=== PATIENT | female | born 1990 | race African-American/Black ===

== ENCOUNTER 2025-01-04 16:37 | Emergency (ER) | payer BC, SELFPAY ==
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
[2025-01-04 16:47] VITALS: BP 95/58; PULSE 75; RESP 16; TEMP 36.9; O2SAT 99
== END 2025-01-04 17:00 | disposition home or self-care (01) ==
PROVIDERS: Emergency Provider Nurse Practitioner; PCP Internal Medicine
DX: Z48.02 Encounter for removal of sutures (principal)
CPT/HCPCS: 99202; G0463

== ENCOUNTER 2025-06-06 11:01 | Emergency (ER) | payer BC, SELFPAY ==
--- NOTE | ~2025-06-06 | XR_ITS ---
EXAMINATION: XR foot RT min 3V DATE: 06/06/2025 11:24 INDICATION: Lateral right foot pain TECHNIQUE: Dorsoplantar, two oblique and lateral views of the right foot were obtained. COMPARISON: None. FINDINGS: Alignment is normal. No fracture. No periosteal reaction, cortical erosions or suspicious lytic or blastic bone lesions. Minimal to mild osteoarthritis at several tarsometatarsal and interphalangeal joints. Soft tissues are unremarkable. IMPRESSION: 1. 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 No acute osseous abnormality. Reviewed, dictated and finalized at location A. [employer] IMPRESSION: 1. Typical minimal to mild osteoarthritis at a several tarsal metatarsal and in terphalangeal joints. No acute osseous abnormality.
[2025-06-06 11:13] VITALS: BP 100/69; PULSE 88; RESP 16; TEMP 36.6; O2SAT 100
--- NOTE | 2025-06-06 11:24 | ED.LOWEXIN ---
HPI - Extremity Injury (Lower) General Chief Complaint: Extremity Injury, Lower Stated Complaint: FALL Time Seen by Provider: 06/06/25 11:44 Source: patient and RN notes reviewed Mode of arrival: ambulatory Limitations: no limitations History of Present Illness HPI Narrative: 34-year-old female presents concern for right foot pain. She reports she stepped in a hole last night at 10:00 p.m.. Reports that did her to the time it hurt when she workup. She reports pain worsens with flexion of the toes and ankles, weight-bearing. She has not taken any medication or done any other intervention for her foot. MD complaint: foot injury Related Data Home Medications ?Medication ?Instructions ?Recorded ?Confirmed ?Last Taken ?Type No Home Medications 01/04/25 06/06/25 Unknown History Allergies Allergy/AdvReac Type Severity Reaction Status Date / Time No Known Allergies Allergy Verified 06/06/25 11:40 Review of Systems Review of Systems: CONSTITUTIONAL: Denies malaise, chills, sweats, or fever. SKIN: Denies rash or itching, open skin, laceration, abrasion, redness, warmth, swelling. MUSCULOSKELETAL: Reports right foot pain NEUROLOGIC: Denies numbness, weakness All systems reviewed & are unremarkable except as noted in HPI and below PMFSH Comments At time of signature, agree with nursing past medical, surgical, social and family history. There is no relevant family history pertinent to the presenting complaint Exam Narrative: GENERAL: Well-appearing, well-nourished, and in no acute distress. HEAD: Normocephalic, atraumatic. EYES: PERRLA, conjunctivae clear NECK: Supple. CHEST: Speaks in full sentences. No respiratory distress. HEART: Regular rate and rhythm. Normal and equal peripheral pulses. EXTREMITIES: Right foot, ankle, digits have grossly normal strength and sensation, grossly normal range of motion. No edema or ecchymosis. Normal sensation with sensitivity to light touch and pain. Dorsal lateral tenderness. No open wounds, no skin tenting, no devitalized tissue or atrophy, no trophic changes, no obvious deformity, alignment normal, nearby joints and structures intact. Distal pulses palpable and equal bilaterally, skin warm, dry, pink. Capillary refill less than 3 seconds. SKIN: Warm, dry, no rash. NEURO: Alert and oriented x3. PSYCH: Normal mood and affect Course Course Emergency Course: Patient is aware of diagnosis, understands and agrees to treatment plan. Anticipatory guidance given. Patient agrees to follow-up as directed and is aware of reasons to seek care at the emergency department. Portions of this record may have been created with voice recognition software Level of Care: Express Care Visit Vital Signs Vital signs: Vital Signs Temperature 97.9 F 06/06/25 11:13 Pulse Rate 88 06/06/25 11:13 Respiratory Rate 16 06/06/25 11:13 Blood Pressure 100/69 06/06/25 11:13 Pulse Oximetry 100 06/06/25 11:13 Oxygen Delivery Room Air 06/06/25 11:13 Temperature 97.9 F 06/06/25 11:13 Pulse Rate 88 06/06/25 11:13 Respiratory Rate 16 06/06/25 11:13 Blood Pressure 100/69 06/06/25 11:13 Pulse Oximetry 100 06/06/25 11:13 Oxygen Delivery Room Air 06/06/25 11:13 Reviewed. MDM - Extremity Injury (Lower) MDM Narrative Medical decision making narrative: The patient was evaluated by myself in the [facility] care. History is obtained from patient who is an independent historian and physical exam was performed.? Available medical records were reviewed at this time. ? Exam findings show no acute concerns or changes; patient is non-toxic appearing and is in no distress. Patient is appropriate for outpatient treatment and follow-up. ? I have evaluated and discussed social determinants of health with the patient that could potentially impact subsequent diagnosis and treatment plans. ? Patients injury and pain is consistent with musculoskeletal etiology. No signs of neurological or vascular compromise on exam. Compartments and tissues are soft without signs of compartment syndrome. Pain is felt appropriate for further evaluation on an outpatient basis. Imaging Data My impression: Images reviewed, interpreted by radiologist, agree, see report. Radiologist's impression: EXAMINATION: XR foot RT min 3V DATE: 06/06/2025 11:24 INDICATION: Lateral right foot pain TECHNIQUE: Dorsoplantar, two oblique and lateral views of the right foot were obtained. COMPARISON: None. FINDINGS: Alignment is normal. No fracture. No periosteal reaction, cortical erosions or suspicious lytic or blastic bone lesions. Minimal to mild osteoarthritis at several tarsometatarsal and interphalangeal joints. Soft tissues are unremarkable. IMPRESSION: 1. 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 No acute osseous abnormality. Critical Care Time Critical Care Time Critical Care Time: No Discharge Plan Discharge Clinical Impression: Foot sprain Patient Disposition: Home Condition: Stable Instructions: Foot Sprain (ED) Additional Instructions: Avoid activities that cause pain until the pain subsides. Ice to the area 20-30 minutes 4-6 times a day Elevate above heart Elastic wrap or orthopedic splint as directed for comfort for the next 5-7 days Crutches as directed if needed Tylenol for lesser pain Ibuprofen regularly for the next 2-3 days for the inflammation Follow up with your primary care provider if the condition is not improving within 1 week. If the condition worsens with numbness, tingling, decrease sensation with weakness seek treatment in the emergency room immediately. Patient Language: Libyan Prescriptions: No Action No Home Medications Follow-up/Referrals: Dipak,Swetha Topete MD [Primary Care Provider, Unknown] Stand Alone Forms: Work/School Release IP Time of Disposition: 11:49
== END 2025-06-06 11:58 | disposition home or self-care (01) ==
PROVIDERS: Emergency Provider Nurse Practitioner; PCP Internal Medicine
DX: S93.601A Unspecified sprain of right foot, initial encounter (principal); W17.2XXA Fall into hole, initial encounter
CPT/HCPCS: 73630; 99213; G0463